=== PATIENT | male | born 1950 | race Two or more races ===

== ENCOUNTER 2020-10-09 13:20 | Inpatient (IN) | payer OTHER ==
[~2020-10-09] VITALS: Ht 172.7 cm; Wt 79.0 kg
[2020-10-09] MEDS ORDERED: AZITHROMYCIN 500MG/ 250ML 250 ML IV ONE (16:30)
[2020-10-09] MEDS ORDERED: methylPREDNISolone SOD SUCC 125 MG/2 ML VL IV ONE (16:30)
[2020-10-09] MEDS ORDERED: ACETAMINOPHEN 325 MG TAB PO ONE (16:30)
[2020-10-09] MEDS ORDERED: MORPHINE SULF INJ 2 MG/ML SYRINGE 1ML IV PRN ×2 (19:15)
[2020-10-09] MEDS ORDERED: REMDESIVIR PER PHARMACY 0 ML IV SCH (19:15)
[2020-10-09] MEDS ORDERED: NITROGLYCERIN 0.4 MG SL TAB SL PRN (19:15)
[2020-10-09] MEDS ORDERED: ONDANSETRON HCL 4 MG/2 ML VIAL IV PRN (19:15)
[2020-10-09] MEDS ORDERED: HYDROcodone-ACET 5/325MG TAB PO PRN (19:15)
[2020-10-09] MEDS ORDERED: ACETAMINOPHEN 500 MG TAB PO PRN (19:15)
[2020-10-09 20:18] LABS: Basophils # (auto) 0 10 ^3/uL (0-0.2); Basophils % (auto) 0.1 % (0.0-2.0); Eosinophils # (auto) 0 10 ^3/uL (0-0.8); Hematocrit 43.3 % (41.0-53.0); Hemoglobin 14.9 g/dL (13.5-17.5); Lymphocytes # (auto) 0.4 10 ^3/uL (0.4-5.4); Lymphocytes % (auto) 5.4 % (10.0-50.0); Mean Corpuscular Hemoglobin 30.3 pg (28.0-32.0); Mean Corpuscular Hgb Conc. 34.5 g/dL (32.0-36.0); Mean Corpuscular Volume 87.8 fL (80.0-100.0); Monocytes # (auto) 0.5 10 ^3/uL (0-1.3); Monocytes % (auto) 6.3 % (0.0-12.0); Neutrophils # (auto) 6.3 10 ^3/uL (1.6-8.6); Neutrophils % (auto) 88.2 % (37.0-80.0); Nucleated Red Blood Cells % 0.1 %; Platelet Count (auto) 166 10^3/uL (140-450); Red Blood Cells 4.93 10^6/uL (4.5-5.90); Red Cell Distribution Width 13.4 % (11.8-14.3); White Blood Cell 7.2 10^3/uL (4.4-10.8)
[2020-10-09 20:33] LABS: Albumin 3.3 g/dL (3.4-5.0); Anion Gap 8 (5-15); Blood Urea Nitrogen 38 mg/dL (7-18); Calcium 9.3 mg/dL (8.5-10.1); Carbon Dioxide 22 mmol/L (21-32); Chloride 104 mmol/L (98-107); Glucose 167 mg/dL (74-106); Potassium 4.2 mmol/L (3.5-5.1); Sodium 134 mmol/L (136-145)
[2020-10-09 20:41] LABS: Alanine Aminotransferase 35 U/L (16-61); Alkaline Phosphatase 58 U/L (45-117); Aspartate Aminotransferase 60 U/L (15-37); BUN/Creatinine Ratio 20.9; Bilirubin, Total 0.8 mg/dL (0.2-1.0); GFR African American 47 mL/min; GFR Non-African American 39 mL/min; Total Protein 8.4 g/dL (6.4-8.2)
[2020-10-09] MEDS: BUDESONIDE (INHALATION) 180 MCG IH IN SCH (22:00)
[2020-10-09] MEDS ORDERED: REMDESIVIR 200 MG in NS 210ml LOADING DOSE ADULT IV ONE (22:00)
[2020-10-09] MEDS: BUDESONIDE (INHALATION) 0.5 MG/2 ML NEB NEB SCH (22:00)
[2020-10-09] MEDS: ENOXAPARIN SOD 40 MG/0.4 ML SYRINGE SC SCH (22:35)
[2020-10-10 07:32] LABS: Basophils # (auto) 0 10 ^3/uL (0-0.2); Basophils % (auto) 0.1 % (0.0-2.0); Eosinophils # (auto) 0 10 ^3/uL (0-0.8); Hematocrit 44.2 % (41.0-53.0); Lymphocytes # (auto) 0.3 10 ^3/uL (0.4-5.4); Lymphocytes % (auto) 5.5 % (10.0-50.0); Mean Corpuscular Hemoglobin 30.5 pg (28.0-32.0); Mean Corpuscular Volume 89.8 fL (80.0-100.0); Monocytes # (auto) 0.2 10 ^3/uL (0-1.3); Monocytes % (auto) 3.5 % (0.0-12.0); Neutrophils # (auto) 4.2 10 ^3/uL (1.6-8.6); Neutrophils % (auto) 90.9 % (37.0-80.0); Nucleated Red Blood Cells % 0.1 %; Platelet Count (auto) 152 10^3/uL (140-450); Red Blood Cells 4.92 10^6/uL (4.5-5.90); Red Cell Distribution Width 13.7 % (11.8-14.3); White Blood Cell 4.6 10^3/uL (4.4-10.8)
[2020-10-10 07:38] LABS: Calcium 9.4 mg/dL (8.5-10.1)
[2020-10-10 07:43] LABS: Albumin 3.2 g/dL (3.4-5.0); BUN/Creatinine Ratio 22.1; Bilirubin, Total 0.6 mg/dL (0.2-1.0); Total Protein 8.4 g/dL (6.4-8.2)
[2020-10-10] MEDS: BUDESONIDE (INHALATION) 0.5 MG/2 ML NEB NEB SCH ×2 (10:00→22:00)
[2020-10-10] MEDS: cefTRIAXone 1GM/50ML D5W 50 ML IV SCH (11:27)
[2020-10-10] MEDS: DexAMETHasone SOD PHOS 10MG/1ML VIAL INJ IV SCH (11:27)
[2020-10-10] MEDS: ENOXAPARIN SOD 40 MG/0.4 ML SYRINGE SC SCH ×2 (11:28→22:53)
[2020-10-10] MEDS: FAMOTIDINE 20 MG TAB PO SCH (11:28)
[2020-10-10] MEDS: AZITHROMYCIN 500MG/ 250ML 250 ML IV SCH (11:28)
[2020-10-10] MEDS: CHOLECALCIFEROL (VITD3) 2,000 UNIT CAP PO SCH (11:28)
[2020-10-10] MEDS: ZINC SULFATE 220mg CAP or TAB PO SCH (11:28)
[2020-10-10] MEDS: BUDESONIDE (INHALATION) 180 MCG IH IN SCH ×2 (11:32→22:00)
[2020-10-10] MEDS: REMDESIVIR 100 MG in SODIUM CHL 0.9% 250 ML IV SCH (20:00)
[2020-10-10] MEDS ORDERED: guaiFENesin-DM 100/10mg/5ml SYR PO PRN (23:00)
[2020-10-11 05:54] LABS: Potassium 4.2 mmol/L (3.5-5.1)
[2020-10-11 06:00] LABS: Albumin 2.8 g/dL (3.4-5.0); BUN/Creatinine Ratio 37.2; Bilirubin, Total 0.4 mg/dL (0.2-1.0); Calcium 9.7 mg/dL (8.5-10.1); Total Protein 7.1 g/dL (6.4-8.2)
[2020-10-11] MEDS: BUDESONIDE (INHALATION) 0.5 MG/2 ML NEB NEB SCH ×2 (10:00→22:00)
[2020-10-11] MEDS: BUDESONIDE (INHALATION) 180 MCG IH IN SCH ×2 (10:00→22:00)
[2020-10-11] MEDS: ZINC SULFATE 220mg CAP or TAB PO SCH (10:03)
[2020-10-11] MEDS: FAMOTIDINE 20 MG TAB PO SCH (10:03)
[2020-10-11] MEDS: CHOLECALCIFEROL (VITD3) 2,000 UNIT CAP PO SCH (10:03)
[2020-10-11] MEDS: cefTRIAXone 1GM/50ML D5W 50 ML IV SCH (10:04)
[2020-10-11] MEDS: AZITHROMYCIN 500MG/ 250ML 250 ML IV SCH (10:04)
[2020-10-11] MEDS: DexAMETHasone SOD PHOS 10MG/1ML VIAL INJ IV SCH (10:04)
[2020-10-11] MEDS: ENOXAPARIN SOD 40 MG/0.4 ML SYRINGE SC SCH ×2 (10:04→22:37)
[2020-10-11] MEDS: REMDESIVIR 100 MG in SODIUM CHL 0.9% 250 ML IV SCH (15:46)
[2020-10-11 21:30] VITALS: BP 135/83
[2020-10-11 22:05] VITALS: BP 135/83
[2020-10-11 22:39] VITALS: BP 135/83
[2020-10-12] VITALS: BP 135/83
[2020-10-12 05:02] VITALS: BP 125/93
[2020-10-12] MEDS: BUDESONIDE (INHALATION) 180 MCG IH IN SCH ×2 (06:19→21:35)
[2020-10-12 06:53] LABS: Potassium 4.3 mmol/L (3.5-5.1)
[2020-10-12 07:04] LABS: Albumin 2.6 g/dL (3.4-5.0); BUN/Creatinine Ratio 36.4; Bilirubin, Total 0.5 mg/dL (0.2-1.0); Calcium 9.3 mg/dL (8.5-10.1); Total Protein 6.7 g/dL (6.4-8.2)
[2020-10-12 07:47] VITALS: BP 128/87
[2020-10-12] MEDS: cefTRIAXone 1GM/50ML D5W 50 ML IV SCH (09:00)
[2020-10-12] MEDS: ALBUTEROL SULF HFA 90MCG INH 200DOSE IN PRN ×2 (09:26→21:35)
[2020-10-12] MEDS: AZITHROMYCIN 500MG/ 250ML 250 ML IV SCH (10:00)
[2020-10-12] MEDS: CHOLECALCIFEROL (VITD3) 2,000 UNIT CAP PO SCH (10:00)
[2020-10-12 12:51] VITALS: BP 114/92
[2020-10-12] MEDS: ENOXAPARIN SOD 40 MG/0.4 ML SYRINGE SC SCH ×2 (14:32→23:29)
[2020-10-12] MEDS: FAMOTIDINE 20 MG TAB PO SCH (14:33)
[2020-10-12] MEDS: ZINC SULFATE 220mg CAP or TAB PO SCH (14:33)
[2020-10-12] MEDS: DexAMETHasone SOD PHOS 10MG/1ML VIAL INJ IV SCH (14:33)
[2020-10-12] MEDS: REMDESIVIR 100 MG in SODIUM CHL 0.9% 250 ML IV SCH (15:00)
[2020-10-12 16:00] VITALS: BP 126/89
[2020-10-12] MEDS: BUDESONIDE (INHALATION) 0.5 MG/2 ML NEB NEB SCH (21:41)
[2020-10-12 21:49] VITALS: BP 109/79
[2020-10-13] VITALS (8 sets, daily range): BP systolic 100–119; BP diastolic 46–85
[2020-10-13 06:47] LABS: Potassium 4.6 mmol/L (3.5-5.1)
[2020-10-13 06:57] LABS: Albumin 2.7 g/dL (3.4-5.0); BUN/Creatinine Ratio 28.7; Bilirubin, Total 0.7 mg/dL (0.2-1.0); Calcium 9.6 mg/dL (8.5-10.1)
[2020-10-13] MEDS: cefTRIAXone 1GM/50ML D5W 50 ML IV SCH (09:34)
[2020-10-13] MEDS: DexAMETHasone SOD PHOS 10MG/1ML VIAL INJ IV SCH (09:35)
[2020-10-13] MEDS: ZINC SULFATE 220mg CAP or TAB PO SCH (09:35)
[2020-10-13] MEDS: FAMOTIDINE 20 MG TAB PO SCH (09:36)
[2020-10-13] MEDS: ENOXAPARIN SOD 40 MG/0.4 ML SYRINGE SC SCH ×2 (09:36→22:12)
[2020-10-13] MEDS: CHOLECALCIFEROL (VITD3) 2,000 UNIT CAP PO SCH (09:36)
[2020-10-13] MEDS: BUDESONIDE (INHALATION) 180 MCG IH IN SCH ×2 (10:22→22:00)
[2020-10-13] MEDS: AZITHROMYCIN 500MG/ 250ML 250 ML IV SCH (10:23)
[2020-10-13] MEDS: REMDESIVIR 100 MG in SODIUM CHL 0.9% 250 ML IV SCH (18:30)
[2020-10-14] VITALS: BP 109/85
[2020-10-14 06:03] LABS: Basophils # (auto) 0 10 ^3/uL (0-0.2); Basophils % (auto) 0.1 % (0.0-2.0); Eosinophils # (auto) 0 10 ^3/uL (0-0.8); Hematocrit 44.9 % (41.0-53.0); Hemoglobin 15.5 g/dL (13.5-17.5); Lymphocytes # (auto) 0.2 10 ^3/uL (0.4-5.4); Lymphocytes % (auto) 2.2 % (10.0-50.0); Mean Corpuscular Hemoglobin 30.9 pg (28.0-32.0); Mean Corpuscular Hgb Conc. 34.4 g/dL (32.0-36.0); Mean Corpuscular Volume 89.6 fL (80.0-100.0); Monocytes # (auto) 0.4 10 ^3/uL (0-1.3); Monocytes % (auto) 4.8 % (0.0-12.0); Neutrophils # (auto) 7.3 10 ^3/uL (1.6-8.6); Neutrophils % (auto) 92.9 % (37.0-80.0); Platelet Count (auto) 210 10^3/uL (140-450); Red Blood Cells 5.02 10^6/uL (4.5-5.90); Red Cell Distribution Width 13.5 % (11.8-14.3); White Blood Cell 7.9 10^3/uL (4.4-10.8)
[2020-10-14 06:25] LABS: Potassium 4.7 mmol/L (3.5-5.1)
[2020-10-14 06:34] LABS: Albumin 2.5 g/dL (3.4-5.0); BUN/Creatinine Ratio 26.2; Bilirubin, Total 0.7 mg/dL (0.2-1.0); Magnesium 2.6 mg/dL (1.6-2.6); Total Protein 6.5 g/dL (6.4-8.2)
[2020-10-14 08:00] VITALS: BP 109/71
[2020-10-14] MEDS: FAMOTIDINE 20 MG TAB PO SCH (10:19)
[2020-10-14] MEDS: ZINC SULFATE 220mg CAP or TAB PO SCH (10:19)
[2020-10-14] MEDS: cefTRIAXone 1GM/50ML D5W 50 ML IV SCH (10:19)
[2020-10-14] MEDS: DexAMETHasone SOD PHOS 10MG/1ML VIAL INJ IV SCH (10:19)
[2020-10-14] MEDS: BUDESONIDE (INHALATION) 180 MCG IH IN SCH ×2 (10:19→22:00)
[2020-10-14] MEDS: ENOXAPARIN SOD 40 MG/0.4 ML SYRINGE SC SCH ×2 (10:20→21:00)
[2020-10-14] MEDS: CHOLECALCIFEROL (VITD3) 2,000 UNIT CAP PO SCH (10:20)
[2020-10-14] MEDS: AZITHROMYCIN 500MG/ 250ML 250 ML IV SCH (11:22)
[2020-10-14 13:00] VITALS: BP 119/78
[2020-10-14 16:00] VITALS: BP 120/65
[2020-10-14 22:00] VITALS: BP 126/81
[2020-10-14] MEDS: BUDESONIDE (INHALATION) 0.5 MG/2 ML NEB NEB SCH (22:00)
[2020-10-15 06:22] LABS: Basophils # (auto) 0 10 ^3/uL (0-0.2); Basophils % (auto) 0.1 % (0.0-2.0); Eosinophils # (auto) 0 10 ^3/uL (0-0.8); Hematocrit 46.1 % (41.0-53.0); Hemoglobin 15.7 g/dL (13.5-17.5); Lymphocytes # (auto) 0.2 10 ^3/uL (0.4-5.4); Lymphocytes % (auto) 2.2 % (10.0-50.0); Mean Corpuscular Hemoglobin 30.6 pg (28.0-32.0); Mean Corpuscular Volume 89.9 fL (80.0-100.0); Monocytes # (auto) 0.4 10 ^3/uL (0-1.3); Monocytes % (auto) 4.2 % (0.0-12.0); Neutrophils # (auto) 8.3 10 ^3/uL (1.6-8.6); Neutrophils % (auto) 93.5 % (37.0-80.0); Nucleated Red Blood Cells % 0.1 %; Platelet Count (auto) 236 10^3/uL (140-450); Red Blood Cells 5.13 10^6/uL (4.5-5.90); Red Cell Distribution Width 13.4 % (11.8-14.3); White Blood Cell 8.9 10^3/uL (4.4-10.8)
[2020-10-15 06:40] LABS: Albumin 2.6 g/dL (3.4-5.0); Calcium 9.5 mg/dL (8.5-10.1); Magnesium 2.4 mg/dL (1.6-2.6); Potassium 5.1 mmol/L (3.5-5.1)
[2020-10-15 06:42] LABS: BUN/Creatinine Ratio 28.1
[2020-10-15 06:45] LABS: Bilirubin, Total 0.9 mg/dL (0.2-1.0); Total Protein 6.5 g/dL (6.4-8.2)
[2020-10-15 08:00] VITALS: BP 106/76
[2020-10-15] MEDS: DexAMETHasone SOD PHOS 10MG/1ML VIAL INJ IV SCH (09:21)
[2020-10-15] MEDS: cefTRIAXone 1GM/50ML D5W 50 ML IV SCH (09:21)
[2020-10-15] MEDS: ZINC SULFATE 220mg CAP or TAB PO SCH (09:22)
[2020-10-15] MEDS: ENOXAPARIN SOD 40 MG/0.4 ML SYRINGE SC SCH ×2 (09:22→22:03)
[2020-10-15] MEDS: FAMOTIDINE 20 MG TAB PO SCH (09:22)
[2020-10-15] MEDS: CHOLECALCIFEROL (VITD3) 2,000 UNIT CAP PO SCH (09:22)
[2020-10-15] MEDS: BUDESONIDE (INHALATION) 180 MCG IH IN SCH ×2 (10:00→22:11)
[2020-10-15] MEDS: AZITHROMYCIN 500MG/ 250ML 250 ML IV SCH (10:00)
[2020-10-15] MEDS ORDERED: LISI2.5T47 PO (11:07)
[2020-10-15] MEDS ORDERED: METF-370 PO (11:07)
[2020-10-15] MEDS ORDERED: DEXTROSE (50%) 50ML SYRG IV PRN (11:15)
[2020-10-15] MEDS ORDERED: LEVO50TA7 PO (11:22)
[2020-10-15] MEDS ORDERED: PIOG15TA25 PO (11:22)
[2020-10-15] MEDS ORDERED: ATOR20TA50 PO (11:24)
[2020-10-15] MEDS ORDERED: ASPI-543 PO (11:24)
[2020-10-15] MEDS: InsuLIN REG 1unit/0.01ml Soln (100units/ml) SC SCH ×3 (11:30→22:04)
[2020-10-15] MEDS: ACCU-CHEK COMFORT CURVE STRIP VI SCH ×3 (11:30→22:03)
[2020-10-15 16:00] VITALS: BP 107/62
[2020-10-15] MEDS: ATORVASTATIN 20 MG TAB PO SCH (22:03)
[2020-10-16] VITALS: BP 91/64
[2020-10-16 06:00] LABS: Basophils # (auto) 0 10 ^3/uL (0-0.2); Basophils % (auto) 0.1 % (0.0-2.0); Eosinophils # (auto) 0 10 ^3/uL (0-0.8); Eosinophils % (auto) 0.1 % (0.0-7.0); Hematocrit 49.7 % (41.0-53.0); Hemoglobin 16.5 g/dL (13.5-17.5); Lymphocytes # (auto) 0.4 10 ^3/uL (0.4-5.4); Lymphocytes % (auto) 3.6 % (10.0-50.0); Mean Corpuscular Hemoglobin 30.2 pg (28.0-32.0); Mean Corpuscular Hgb Conc. 33.1 g/dL (32.0-36.0); Mean Corpuscular Volume 91.2 fL (80.0-100.0); Monocytes # (auto) 0.4 10 ^3/uL (0-1.3); Monocytes % (auto) 3.9 % (0.0-12.0); Neutrophils # (auto) 9.9 10 ^3/uL (1.6-8.6); Neutrophils % (auto) 92.3 % (37.0-80.0); Platelet Count (auto) 221 10^3/uL (140-450); Red Blood Cells 5.45 10^6/uL (4.5-5.90); Red Cell Distribution Width 12.9 % (11.8-14.3); White Blood Cell 10.7 10^3/uL (4.4-10.8)
[2020-10-16] MEDS: FUROSEMIDE 40 MG/4 ML VIAL IV SCH ×2 (06:00→18:02)
[2020-10-16 06:19] LABS: BUN/Creatinine Ratio 35.9; Calcium 9.7 mg/dL (8.5-10.1); Magnesium 2.7 mg/dL (1.6-2.6); Potassium 4.7 mmol/L (3.5-5.1)
[2020-10-16] MEDS: LEVOTHYROXINE SODIUM 25 MCG TAB PO SCH (06:33)
[2020-10-16] MEDS: ACCU-CHEK COMFORT CURVE STRIP VI SCH ×4 (06:33→21:52)
[2020-10-16] MEDS: InsuLIN REG 1unit/0.01ml Soln (100units/ml) SC SCH ×4 (06:36→21:56)
[2020-10-16] MEDS: BUDESONIDE (INHALATION) 180 MCG IH IN SCH ×2 (07:20→22:00)
[2020-10-16] MEDS: ALBUTEROL SULF HFA 90MCG INH 200DOSE IN PRN (07:20)
[2020-10-16 07:41] VITALS: BP 97/70
[2020-10-16] MEDS: ZINC SULFATE 220mg CAP or TAB PO SCH (09:41)
[2020-10-16] MEDS: DexAMETHasone SOD PHOS 10MG/1ML VIAL INJ IV SCH (09:41)
[2020-10-16] MEDS: cefTRIAXone 1GM/50ML D5W 50 ML IV SCH (09:41)
[2020-10-16] MEDS: ASPirin 81 mg TAB PO SCH (09:41)
[2020-10-16] MEDS: CHOLECALCIFEROL (VITD3) 2,000 UNIT CAP PO SCH (09:43)
[2020-10-16] MEDS: FAMOTIDINE 20 MG TAB PO SCH (09:43)
[2020-10-16] MEDS: ENOXAPARIN SOD 40 MG/0.4 ML SYRINGE SC SCH ×2 (09:44→21:51)
[2020-10-16] MEDS ORDERED: LISINOPRIL 5 MG TAB PO SCH (10:00)
[2020-10-16] MEDS: AZITHROMYCIN 500MG/ 250ML 250 ML IV SCH (11:45)
[2020-10-16 15:47] VITALS: BP 98/69
[2020-10-16] MEDS: ATORVASTATIN 20 MG TAB PO SCH (21:51)
[2020-10-17] VITALS: BP 107/65
[2020-10-17] MEDS: FUROSEMIDE 40 MG/4 ML VIAL IV SCH ×2 (06:00→17:45)
[2020-10-17] MEDS: LEVOTHYROXINE SODIUM 25 MCG TAB PO SCH (06:40)
[2020-10-17] MEDS: ACCU-CHEK COMFORT CURVE STRIP VI SCH ×4 (06:40→21:46)
[2020-10-17] MEDS: InsuLIN REG 1unit/0.01ml Soln (100units/ml) SC SCH ×4 (06:42→21:58)
[2020-10-17] MEDS: BUDESONIDE (INHALATION) 180 MCG IH IN SCH ×2 (07:33→19:26)
[2020-10-17] MEDS: ALBUTEROL SULF HFA 90MCG INH 200DOSE IN PRN ×2 (07:33→19:27)
[2020-10-17 08:00] VITALS: BP 103/69
[2020-10-17] MEDS ORDERED: DEXTROSE 10% 1,000 ML IV ONE (09:45)
[2020-10-17] MEDS: ENOXAPARIN SOD 40 MG/0.4 ML SYRINGE SC SCH ×2 (10:57→21:46)
[2020-10-17] MEDS: DexAMETHasone SOD PHOS 10MG/1ML VIAL INJ IV SCH (10:57)
[2020-10-17] MEDS: ZINC SULFATE 220mg CAP or TAB PO SCH (10:57)
[2020-10-17] MEDS: cefTRIAXone 1GM/50ML D5W 50 ML IV SCH (10:58)
[2020-10-17] MEDS: ASPirin 81 mg TAB PO SCH (10:58)
[2020-10-17] MEDS: CHOLECALCIFEROL (VITD3) 2,000 UNIT CAP PO SCH (10:58)
[2020-10-17] MEDS: FAMOTIDINE 20 MG TAB PO SCH (10:58)
[2020-10-17] MEDS: AZITHROMYCIN 500MG/ 250ML 250 ML IV SCH (10:59)
[2020-10-17] MEDS: ATORVASTATIN 20 MG TAB PO SCH (21:45)
[2020-10-18] VITALS: BP 99/67
[2020-10-18] MEDS: FUROSEMIDE 40 MG/4 ML VIAL IV SCH ×2 (06:00→17:35)
[2020-10-18] MEDS: LEVOTHYROXINE SODIUM 25 MCG TAB PO SCH (06:55)
[2020-10-18] MEDS: ACCU-CHEK COMFORT CURVE STRIP VI SCH ×4 (06:55→22:36)
[2020-10-18] MEDS: InsuLIN REG 1unit/0.01ml Soln (100units/ml) SC SCH ×4 (07:00→22:43)
[2020-10-18 07:44] VITALS: BP 97/71
[2020-10-18] MEDS: BUDESONIDE (INHALATION) 180 MCG IH IN SCH ×2 (10:00→19:59)
[2020-10-18] MEDS: ALBUTEROL SULF HFA 90MCG INH 200DOSE IN PRN ×2 (10:00→19:59)
[2020-10-18] MEDS: FAMOTIDINE 20 MG TAB PO SCH (10:25)
[2020-10-18] MEDS: ASPirin 81 mg TAB PO SCH (10:25)
[2020-10-18] MEDS: ZINC SULFATE 220mg CAP or TAB PO SCH (10:25)
[2020-10-18] MEDS: CHOLECALCIFEROL (VITD3) 2,000 UNIT CAP PO SCH (10:25)
[2020-10-18] MEDS: DexAMETHasone SOD PHOS 10MG/1ML VIAL INJ IV SCH (10:25)
[2020-10-18] MEDS: ENOXAPARIN SOD 40 MG/0.4 ML SYRINGE SC SCH ×2 (10:25→22:36)
[2020-10-18 15:57] VITALS: BP 100/69
[2020-10-18 15:59] VITALS: BP 100/69
[2020-10-18] MEDS: ATORVASTATIN 20 MG TAB PO SCH (22:35)
[2020-10-19] VITALS: BP 104/70
[2020-10-19] MEDS: ACCU-CHEK COMFORT CURVE STRIP VI SCH ×4 (06:33→21:53)
[2020-10-19] MEDS: LEVOTHYROXINE SODIUM 25 MCG TAB PO SCH (06:33)
[2020-10-19] MEDS: InsuLIN REG 1unit/0.01ml Soln (100units/ml) SC SCH ×4 (06:35→22:15)
[2020-10-19 08:00] VITALS: BP 127/64
[2020-10-19] MEDS: DexAMETHasone SOD PHOS 10MG/1ML VIAL INJ IV SCH (09:13)
[2020-10-19] MEDS: ASPirin 81 mg TAB PO SCH (09:14)
[2020-10-19] MEDS: CHOLECALCIFEROL (VITD3) 2,000 UNIT CAP PO SCH (09:14)
[2020-10-19] MEDS: FAMOTIDINE 20 MG TAB PO SCH (09:14)
[2020-10-19] MEDS: ENOXAPARIN SOD 40 MG/0.4 ML SYRINGE SC SCH ×2 (09:14→21:52)
[2020-10-19] MEDS: ZINC SULFATE 220mg CAP or TAB PO SCH (09:14)
[2020-10-19] MEDS: BUDESONIDE (INHALATION) 180 MCG IH IN SCH ×2 (10:00→20:45)
[2020-10-19 10:43] LABS: Basophils # (auto) 0 10 ^3/uL (0-0.2); Basophils % (auto) 0.3 % (0.0-2.0); Eosinophils # (auto) 0 10 ^3/uL (0-0.8); Eosinophils % (auto) 0.1 % (0.0-7.0); Hematocrit 50.6 % (41.0-53.0); Lymphocytes # (auto) 0.5 10 ^3/uL (0.4-5.4); Lymphocytes % (auto) 3.2 % (10.0-50.0); Mean Corpuscular Hemoglobin 30.5 pg (28.0-32.0); Mean Corpuscular Hgb Conc. 33.6 g/dL (32.0-36.0); Mean Corpuscular Volume 90.9 fL (80.0-100.0); Monocytes # (auto) 0.7 10 ^3/uL (0-1.3); Monocytes % (auto) 4.8 % (0.0-12.0); Neutrophils # (auto) 13.8 10 ^3/uL (1.6-8.6); Neutrophils % (auto) 91.6 % (37.0-80.0); Platelet Count (auto) 302 10^3/uL (140-450); Red Blood Cells 5.56 10^6/uL (4.5-5.90); Red Cell Distribution Width 13.4 % (11.8-14.3)
[2020-10-19 11:00] LABS: BUN/Creatinine Ratio 39.2; Calcium 9.7 mg/dL (8.5-10.1); Magnesium 2.5 mg/dL (1.6-2.6); Potassium 4.2 mmol/L (3.5-5.1)
[2020-10-19 16:00] VITALS: BP 113/85
[2020-10-19] MEDS: ALBUTEROL SULF HFA 90MCG INH 200DOSE IN PRN (20:45)
[2020-10-19] MEDS: ATORVASTATIN 20 MG TAB PO SCH (21:53)
[2020-10-20] VITALS: BP 111/80
[2020-10-20] MEDS: ALBUTEROL SULF HFA 90MCG INH 200DOSE IN PRN (06:25)
[2020-10-20] MEDS: LEVOTHYROXINE SODIUM 25 MCG TAB PO SCH (06:37)
[2020-10-20] MEDS: ACCU-CHEK COMFORT CURVE STRIP VI SCH ×3 (06:38→16:36)
[2020-10-20] MEDS: InsuLIN REG 1unit/0.01ml Soln (100units/ml) SC SCH ×3 (06:44→17:07)
[2020-10-20 07:53] VITALS: BP 109/77
[2020-10-20] MEDS: BUDESONIDE (INHALATION) 180 MCG IH IN SCH (09:55)
[2020-10-20] MEDS: ZINC SULFATE 220mg CAP or TAB PO SCH (09:56)
[2020-10-20] MEDS: DexAMETHasone SOD PHOS 10MG/1ML VIAL INJ IV SCH (09:56)
[2020-10-20] MEDS: ASPirin 81 mg TAB PO SCH (09:56)
[2020-10-20] MEDS: FAMOTIDINE 20 MG TAB PO SCH (09:56)
[2020-10-20] MEDS: ENOXAPARIN SOD 40 MG/0.4 ML SYRINGE SC SCH (09:57)
[2020-10-20] MEDS: CHOLECALCIFEROL (VITD3) 2,000 UNIT CAP PO SCH (09:57)
[2020-10-20 16:00] VITALS: BP 112/70
== END 2020-10-20 19:13 | disposition home health service (06) | DRG 177 ==
LOC: ER 13:20 → OVERFLOW 13:21 → TELE-E-ADS 10-11 21:10
PROVIDERS: ADMIT Nurse Practitioner Acute Care; ATTEND Internal Medicine
PROC: XW033E5 Introduction of Remdesivir Anti-infective into Peripheral Vein, Percutaneous Approach, New Technology Group 5 (ICD-10-PCS; principal; 2020-10-09)
DX: U07.1 COVID-19 (principal); J96.01 Acute respiratory failure with hypoxia; N17.0 Acute kidney failure with tubular necrosis; N18.6 End stage renal disease; J12.82 Pneumonia due to coronavirus disease 2019; J98.11 Atelectasis; D68.59 Other primary thrombophilia; E87.1 Hypo-osmolality and hyponatremia; I13.2 Hypertensive heart and chronic kidney disease with heart failure and with stage 5 chronic kidney disease, or end stage renal disease; E78.5 Hyperlipidemia, unspecified; Z99.2 Dependence on renal dialysis; E11.22 Type 2 diabetes mellitus with diabetic chronic kidney disease; E11.65 Type 2 diabetes mellitus with hyperglycemia; E88.09 Other disorders of plasma-protein metabolism, not elsewhere classified; I50.9 Heart failure, unspecified; Z79.4 Long term (current) use of insulin; Z83.3 Family history of diabetes mellitus
CPT/HCPCS: 36415; 36600; 70450; 71045; 80048; 80053; 82728; 82805; 82962; 83036; 83735; 83880; 84484; 85025; 85379; 86141; 87040; 87426; 87804; 93005; 94640; 96365; 96375; 97110; 97116; 97530; G0378; J0696; J1100; J1815